=== PATIENT | male | born 1955 | race Caucasian/White ===

== ENCOUNTER 2018-03-13 17:03 | Inpatient (IN) | payer OTHER ==
[2018-03-13] MEDS ORDERED: Fentanyl 100 MCG/2 ML VIAL ONE ×2 (17:46→21:50)
--- NOTE | 2018-03-13 18:41 | CT ---
CT OF THE ABDOMEN AND PELVIS: Date: 03/13/18 PROVIDED CLINICAL HISTORY: Pelvic pain status post injury. FINDINGS: The visualized lung bases are free of significant opacity. The solid abdominal organs are suboptimally evaluated without IV contrast, but demonstrate an unremar kable unenhanced CT appearance. Gallstones are seen. There is no bowel dilatation, intraperitoneal fa t stranding, or free air apparent. There is a both column left acetabular fracture. There is displacement of the anterior column fractur e that extends through the anterior aspect of the acetabulum with significant comminution. There is a pproximately 4.0 mm of intraarticular gap without significant step-off. There is intramuscular hemato ma involving the left obturator internus. There is mild mass effect upon the left aspect of the urina ry bladder. There is mild superior end plate compression deformity of L1. This appears acute. No additional fract ure is evident. Segmentation anomaly involving L4 is noted. Occasional vascular calcification is seen. Density in the distal right inguinal canal may reflect the right testicle. IMPRESSION: 1. Both column left acetabular fracture. Orthopedic consultation is recommended. 2. Mild superior end plate compression deformity of L1. POS: [facility]
[2018-03-13 18:54] LABS: #Eosinphils 0.1 thou/uL (0.0-0.7); #Lymphocytes 0.9 thou/uL (1.20-3.40); #Monocytes 1.1 thou/uL (0.11-0.59); #Neutrophils 13.9 thou/uL (1.40-6.50); %Basophils 0.1 % (0.0-1.0); %Eosinophils 0.4 % (0.0-10.0); %Lymphocytes 5.6 % (21.0-51.0); %Monocytes 6.9 % (0.0-10.0); Hemoglobin 14.1 g/dL (14.0-18.0); Mean Corpuscular Hemoglobin 30.6 pg (27.0-31.0); Mean Corpuscular Volume 92.8 fl (80.0-94.0); Mean Platelet Volume 6.6 fL (7.4-10.4); Platelet Count 243 thou/uL (130-400); RBC Distribution Width 12.4 % (11.5-14.5); White Blood Cell (WBC) Count 15.9 thou/uL (4.8-10.8)
[2018-03-13 19:16] LABS: ALT (SGPT) 25 U/L (8-55); AST (SGOT) 35 U/L (5-34); Albumin 4.1 g/dL (3.4-4.8); Alkaline Phosphatase 42 U/L (40-150); Anion Gap 12 mmol/L (10-20); BUN (Urea Nitrogen) 20 mg/dL (8.4-25.7); Bilirubin, Total 0.6 mg/dL (0.2-1.2); Calc. Creatinine Clearance 0 mL/min (70-130); Calcium 8.5 mg/dL (7.8-10.44); Carbon Dioxide 22 mmol/L (23-31); Chloride 109 mmol/L (98-107); Estimated GFR-MDRD 33; Globulin 2.8 g/dL (2.4-3.5); Glucose 133 mg/dL (80-115); Potassium 4.5 mmol/L (3.5-5.1); Protein, Total 6.9 g/dL (5.8-8.1); Sodium 138 mmol/L (136-145)
[2018-03-13] MEDS ORDERED: Ondansetron HCl/PF 4 MG/2 ML Vial IVP PRN (23:30)
[2018-03-13] MEDS ORDERED: Ondansetron ODT 4 MG TAB PO PRN (23:30)
[2018-03-13] MEDS ORDERED: hydrALAZINE 20 MG/ML VIAL SLOW IVP PRN (23:30)
[2018-03-13] MEDS ORDERED: Cyclobenzaprine 10 MG TAB PO PRN (23:30)
[2018-03-13] MEDS ORDERED: Dextrose 5% in Water 1,000 ML IV PRN (23:30)
[2018-03-13] MEDS ORDERED: Dextrose 50% Abboject 50 ML SYRINGE SLOW IVP PRN (23:30)
[2018-03-13] MEDS ORDERED: Morphine 4 MG/ML VIAL SLOW IVP PRN (23:30)
[2018-03-13] MEDS ORDERED: Famotidine 20 MG TAB PO SCH (23:45)
[2018-03-13] MEDS: Acetaminophen 1,000 MG in Premix Bag 1 BAG IVPB SCH (23:57)
[2018-03-13] MEDS: Ketorolac Tromethamine 30 MG/ML VIAL IVP SCH (23:58)
[2018-03-13] MEDS: Sodium Chloride 0.9% 1,000 ML IV SCH (23:58)
[2018-03-14] MEDS: Morphine 4 MG/ML VIAL SLOW IVP PRN
[2018-03-14 00:47] VITALS: BMI 28.8
[2018-03-14 03:59] LABS: #Basophils 0.1 thou/uL (0.0-0.2); #Monocytes 1.3 thou/uL (0.11-0.59); #Neutrophils 9.6 thou/uL (1.40-6.50); %Basophils 0.6 % (0.0-1.0); %Eosinophils 0.2 % (0.0-10.0); %Lymphocytes 15.4 % (21.0-51.0); %Monocytes 9.8 % (0.0-10.0); %Neutrophils 74.1 % (42.0-75.0); Hemoglobin 12.2 g/dL (14.0-18.0); Mean Corpuscular HGB CONC 33.7 g/dL (32.0-36.0); Mean Corpuscular Hemoglobin 31.4 pg (27.0-31.0); Mean Corpuscular Volume 93.1 fl (80.0-94.0); Platelet Count 217 thou/uL (130-400); RBC Distribution Width 12.5 % (11.5-14.5)
[2018-03-14 04:16] LABS: Anion Gap 9 mmol/L (10-20); BUN (Urea Nitrogen) 21 mg/dL (8.4-25.7); Calc. Creatinine Clearance 53 mL/min (70-130); Calcium 7.9 mg/dL (7.8-10.44); Carbon Dioxide 23 mmol/L (23-31); Chloride 111 mmol/L (98-107); Estimated GFR-MDRD 45; Glucose 117 mg/dL (80-115); Potassium 4.5 mmol/L (3.5-5.1); Sodium 138 mmol/L (136-145)
--- NOTE | 2018-03-14 04:48 | HP ---
HISTORY OF PRESENT ILLNESS: Benedict Abdullahi is a 62-year-old male patient involved in an accident rid ing a horse in [place], [place]. He lives in [place]. Accident occurred at 10:30 this morning. He denie s loss of consciousness. He was transported by a vehicle and got to [place] where he realized h e is having too much discomfort and he is stopped in the emergency room. CAT scan obtained revealed left pelvic fracture and he was transferred to [facility] Room, evaluated by Dr. Kierra coleman. The patient has been hemodynamically stable and this case has been discussed with Dr. Ashford son, reviewed his CAT scan and is planning ORIF of his pelvis on Tuesday. ALLERGIES: None. TOBACCO: None. ALCOHOL: None. MEDICATIONS: None. PAST SURGICAL HISTORY: Vasectomy. He had a colonoscopy 10 years ago, was followed Dr. Todd Colón . PAST MEDICAL HISTORY: Noncontributory. HOME MEDICATIONS: None. PHYSICAL EXAMINATION: VITAL SIGNS: Blood pressure 130/75, heart rate 79, respiratory rate 18. GENERAL: The patient is a retired highway maintainer and currently teaches at [employer] and plan on occas ion was mostly retired. HEAD, EYES, EARS, NOSE AND THROAT: Unremarkable. LUNGS: Clear to auscultation. CARDIAC: Regular rate and rhythm without murmur, rub, or gallop. ABDOMEN: Soft, nontender, no masses. EXTREMITIES: Unremarkable. Good pulses. PELVIS: Tender left pelvis. CAT scan of abdomen and pelvis reveals left acetabular fracture, mild superior endplate compression f racture, deformity of L1. LABORATORY DATA: White count 15, hemoglobin 14. Basic metabolic profile normal. ASSESSMENT AND PLAN: Left acetabular fracture. Dr. Rodríguez has planned open reduction and interna l fixation in [address] Fernandez catheter. Activity per Dr. Rodríguez. SCDs. Check CBC in the morning. Analgesics.
[2018-03-14] MEDS: Acetaminophen 1,000 MG in Premix Bag 1 BAG IVPB SCH ×3 (06:12→17:40)
[2018-03-14] MEDS: Ketorolac Tromethamine 30 MG/ML VIAL IVP SCH ×4 (06:13→23:28)
[2018-03-14] MEDS: Sodium Chloride 0.9% 1,000 ML IV SCH ×2 (08:23→17:40)
[2018-03-14] MEDS: Losartan 25 MG TAB PO SCH (08:24)
--- NOTE | 2018-03-14 10:12 | CON ---
DATE OF CONSULTATION: 03/14/2018 CHIEF COMPLAINT: Left hip pain. HISTORY OF PRESENT ILLNESS: Mr. Abdullahi is a 62-year-old male who was bucked from a horse. He landed hard on his left hip and side. He was in the [place] area. He drove home with his to [facility] and then stopped at the hospital because his pain was significantly worsening. He had difficulty bearing weight after his fall. He was transferred to [facility] in [place] for definitive zaira atment after a pelvic and acetabular fracture was identified. He is resting comfortably. He has bee n admitted to the hospital by the General Surgery Trauma Service. No other injuries have been identi fied. PAST MEDICAL HISTORY: Includes possible thyroid disorder. He is undergoing current workup for this. PAST SURGICAL HISTORY: No recent surgeries. ALLERGIES: None. SOCIAL HISTORY: The patient denies tobacco, alcohol, or drug use. FAMILY MEDICAL HISTORY: Noncontributory. PHYSICAL EXAMINATION: VITAL SIGNS: Temperature is 98.3, pulse is 89, respiratory 16, oxygen saturation 97%, blood pressure 143/77. GENERAL: He is alert, sitting with head of bed elevated, in no apparent distress. HEENT: Normocephalic, atraumatic. RESPIRATORY: Breathing comfortably. ABDOMEN: Soft, nontender, nondistended. CARDIOVASCULAR: Pulse is palpable and regular peripherally. MUSCULOSKELETAL: The patient's left lower extremity has pain with any motion in the hip. He is neur ovascularly intact distally with palpable dorsalis pedis pulse. He is able to flex and extend the fo ot and ankle. Normal sensation. IMAGES: X-rays and CT scan of the pelvis demonstrate a both column acetabulum fracture. The posteri or column component is minimally displaced. He has approximately 1 cm of diastasis at the anterior c olumn through the articular surface. IMPRESSION: Left both column acetabulum fracture. PLAN: At this point, the patient will need operative intervention. Our goal will be to restore aly omic alignment of the articular surface of the joint. I am hopeful we can do this through percutaneo us screw fixation. If not, we will need to do an anterior ilioinguinal type approach to reduce the f racture. The patient is aware of this and wants to proceed. Goal of surgery is to preserve the hip joint. Risks do include post-traumatic arthritis, nonunion, malunion, nerve or vascular injury, DVT, PE, and others. He should be n.p.o. at midnight. He will have appropriate antibiotic and DVT proph ylaxis.
--- NOTE | 2018-03-14 19:53 | PRG ---
DATE OF SERVICE: 03/14/2018 SUBJECTIVE: The patient is hospital day 2 status post being thrown from a horse and sustaining a lef t-sided pelvis fracture. The patient currently is on the surgical floor and he is awaiting orthopedi c intervention, which is scheduled for tomorrow. The patient overnight has had no issues. He states his pain is controlled. He is tolerating a diet this morning. OBJECTIVE: VITAL SIGNS: Temperature is 98.1, heart rate 84, blood pressure 134/73, respirations 12, oxygen satu ration is 96% on room air. GENERAL: The patient is awake, alert, oriented, resting comfortably in bed. His [place] coma scale is 15. HEENT: Unremarkable. LUNGS: Clear to auscultation with good inspiratory and expiratory effort. HEART: Regular rate and rhythm. ABDOMEN: Soft, flat, nontender with active bowel sounds. EXTREMITIES: Neurovascularly intact x4. LABORATORY DATA: White blood cell count 13, hemoglobin 12.2, hematocrit 36.3, platelets 217. Sodium 138, potassium 4.5, chloride 111, CO2 of 23, BUN 21, creatinine 1.57, glucose 117. There are no rad iographs to review this morning. ASSESSMENT: 1. Status post ground-level fall. 2. Left-sided pelvis fracture. 3. Acute on chronic kidney injury. PLAN: Plan will be to continue IV hydration, pain control, supportive care, and make the patient n.p .o. after midnight tonight.
[2018-03-14] MEDS: Famotidine 20 MG TAB PO SCH (21:25)
[2018-03-14] MEDS: Atorvastatin Calcium 10 MG TAB PO SCH (21:25)
[2018-03-14] MEDS: Acetaminophen 500 MG TAB PO SCH (23:28)
[2018-03-15] MEDS: Sodium Chloride 0.9% 1,000 ML IV SCH ×3 (04:16→19:44)
[2018-03-15] MEDS: Acetaminophen 500 MG TAB PO SCH ×4 (05:12→23:26)
[2018-03-15] MEDS: Ketorolac Tromethamine 30 MG/ML VIAL IVP SCH ×4 (05:12→23:27)
[2018-03-15 06:01] LABS: #Eosinphils 0.3 thou/uL (0.0-0.7); #Lymphocytes 2.5 thou/uL (1.20-3.40); #Monocytes 0.9 thou/uL (0.11-0.59); #Neutrophils 6.3 thou/uL (1.40-6.50); %Basophils 0.3 % (0.0-1.0); %Eosinophils 2.8 % (0.0-10.0); %Lymphocytes 25.2 % (21.0-51.0); %Monocytes 9.3 % (0.0-10.0); %Neutrophils 62.5 % (42.0-75.0); Hemoglobin 12.6 g/dL (14.0-18.0); Mean Corpuscular HGB CONC 34.6 g/dL (32.0-36.0); Mean Corpuscular Hemoglobin 32.7 pg (27.0-31.0); Mean Corpuscular Volume 94.5 fl (80.0-94.0); Mean Platelet Volume 6.9 fL (7.4-10.4); Platelet Count 185 thou/uL (130-400); RBC Distribution Width 12.8 % (11.5-14.5); Red Blood Cell (RBC) Count 3.86 mill/uL (4.70-6.10)
[2018-03-15 06:15] LABS: Anion Gap 10 mmol/L (10-20); BUN (Urea Nitrogen) 17 mg/dL (8.4-25.7); Calc. Creatinine Clearance 69 mL/min (70-130); Calcium 7.9 mg/dL (7.8-10.44); Carbon Dioxide 20 mmol/L (23-31); Chloride 112 mmol/L (98-107); Estimated GFR-MDRD 60; Glucose 86 mg/dL (80-115); Magnesium 1.8 mg/dL (1.6-2.6); Phosphorus 2.2 mg/dL (2.3-4.7); Potassium 4.2 mmol/L (3.5-5.1); Sodium 138 mmol/L (136-145)
[2018-03-15] MEDS: Losartan 25 MG TAB PO SCH (10:18)
[2018-03-15] MEDS: Magnesium Oxide 400 MG TAB PO SCH ×2 (11:24→23:26)
[2018-03-15] MEDS ORDERED: CEFAZOLIN/Water 2 GM/20 ML SYRINGE SLOW IVP SCH ×2 (12:00→22:00)
[2018-03-15] MEDS ORDERED: Glycopyrrolate 0.2 MG/ML 5 ML SYRINGE ONE (12:11)
[2018-03-15] MEDS ORDERED: PHENYLEPHRINE-NS 100 MCG/ML 10 ML SYRINGE ONE (12:11)
[2018-03-15] MEDS ORDERED: PROPOFOL 200 MG/20 ML VIAL ONE (12:11)
[2018-03-15] MEDS ORDERED: Dexamethasone 20 MG/5 ML VIAL ONE (12:11)
[2018-03-15] MEDS ORDERED: Ketorolac Tromethamine 30 MG/ML VIAL ONE (12:11)
[2018-03-15] MEDS ORDERED: CEFAZOLIN/Water 2 GM/20 ML SYRINGE ONE (13:34)
[2018-03-15] MEDS ORDERED: Midazolam HCl 2 mg/2 ml Vial ONE (13:50)
[2018-03-15] MEDS ORDERED: Fentanyl 100 MCG/2 ML VIAL ONE ×3 (15:15→16:35)
[2018-03-15] MEDS ORDERED: HYDROmorphone 0.5 MG/0.5 ML SYRINGE ONE (15:56)
[2018-03-15] MEDS ORDERED: Ondansetron HCl/PF 4 MG/2 ML Vial IVP PRN (17:01)
[2018-03-15] MEDS ORDERED: HYDROmorphone 2 MG/ML VIAL SLOW IVP PRN (17:01)
[2018-03-15] MEDS ORDERED: Meperidine HCl/PF 25 MG/ML VIAL SLOW IVP PRN (17:01)
[2018-03-15] MEDS ORDERED: Promethazine HCl 25 MG/ML VIAL SLOW IVP PRN (17:01)
[2018-03-15] MEDS ORDERED: Morphine Sulfate 2 MG/ML SYRINGE SLOW IVP PRN (17:01)
--- NOTE | 2018-03-15 17:49 | PRG ---
DATE OF SERVICE: 03/15/2018 SUBJECTIVE: The patient is hospital day 3 status post being ejected from a horse and sustaining a le ft-sided hip fracture. The patient has been n.p.o. since midnight. His pain was controlled. He is awaiting surgical intervention by the Orthopedic team today. He states that he has had no issues ove rnight. PHYSICAL EXAMINATION: VITAL SIGNS: Temperature is 98.1, heart rate 78, respirations 16, oxygen saturation 98% on room air, blood pressure 125/75. GENERAL: The patient is resting comfortably in bed. He is awake, alert, oriented x3. [place] coma scale is 15. HEENT: Unremarkable. LUNGS: Clear to auscultation with good inspiratory and expiratory effort. HEART: Regular rate and rhythm. ABDOMEN: Soft, flat, nontender. EXTREMITIES: Neurovascularly intact x4. LABORATORY DATA: White blood cell count 10, hemoglobin 12.6, hematocrit 36.5, platelets 185. Sodium 138, potassium 4.2, chloride 112, CO2 of 20, BUN 17, creatinine 1.22, glucose 86, magnesium 1.8, luis miguel sphorus 2.2. There are no radiographs to review this morning. ASSESSMENT: 1. Status post ejection from a horse. 2. Left-sided pelvis fractures. PLAN: Plan will be to continue supportive care, pain control, and await his surgical procedure after wards, physical and occupational therapy, and placement.
[2018-03-15 18:31] LABS: Hemoglobin 11.2 g/dL (14.0-18.0)
[2018-03-15] MEDS: Famotidine 20 MG TAB PO SCH (20:54)
[2018-03-15] MEDS: Atorvastatin Calcium 10 MG TAB PO SCH (20:54)
[2018-03-15] MEDS: Morphine 4 MG/ML VIAL SLOW IVP PRN (20:54)
[2018-03-15] MEDS: HYDROcodone/Acetaminophen 10/325 mg Tablet PO PRN (21:57)
--- NOTE | 2018-03-15 22:10 | CT ---
CT PELVIS WITHOUT CONTRAST: 03/15/2018 PROVIDED CLINICAL HISTORY: Postop acetabular fracture, ORIF. COMPARISON: 03/13/2018 FINDINGS: Interval anterior plate and screw fixation of the left anterior column. The medial-most screw associa makenna with the pubic body approximates the urethra at its distal aspect. The lateral most screw associ ated with the left superior pubic ramus is proud from the posterior-superior pubic ramus cortex, and its relationship to the obturator neurovascular bundle is not well evaluated on the basis of beam silke dening artifact. Interval placement of a cannulated, partially threaded screw from the superior aspect of the acetabul um, terminating in the region of the left ischium. The mid portion of this screw protrudes within th e left hip joint and approximates the superomedial articular cortex of the left femoral head. Commin uted intraarticular acetabular roof fracture, parasagittally oriented, demonstrates no significant in traarticular gap or intraarticular step-off. Postoperative soft tissue gas is demonstrated. Gas density is seen within the bladder from an indwel ling Fernandez catheter. Nonspecific presacral fluid density. IMPRESSION: Interval postoperative changes, as described above. POS: [facility]
--- NOTE | 2018-03-15 22:35 | OP ---
DATE OF OPERATION: 03/15/2018 PROCEDURE PERFORMED: Open reduction internal fixation of left both column acetabulum fracture. PREOPERATIVE DIAGNOSIS: Left displaced both column acetabulum fracture. POSTOPERATIVE DIAGNOSIS: Left displaced both column acetabulum fracture. COMPLICATIONS: None. ESTIMATED BLOOD LOSS: 1300 mL CO-SURGEONS: Masood Rodríguez M.D. and Lincoln Coyle M.D. IMPLANTS: Synthes pelvic reconstruction plate with multiple nonlocking screws, 3.5 and a single 6.5 mm screw. INDICATIONS: Mr. Abdullahi is a 62-year-old male who was bucked from a horse. He fell hard on his left side. He fractured his acetabulum. He was indicated for open reduction internal fixation of the pel vis and acetabulum to restore anatomic alignment and promote healing. Risks were reviewed in detail. He elected to proceed with the operation. Risks are extensive and do include bleeding, nerve or va scular injury, post-traumatic arthritis, hardware failure, nonunion, malunion and others. DESCRIPTION OF PROCEDURE: Mr. Abdullahi was identified in the preoperative holding area. His correct ex tremity was marked. He was carried to the operating room. He was positioned supine. General anesth esia was induced. The left lower extremity and anterior pelvis was prepped and draped in a sterile f ashion. He was placed in traction on the left leg. At this point, we proceeded with ilioinguinal approach to the acetabulum. We dissected down through the subcutaneous tissues to the fascia level. We then reflected the fascia off of the iliac crest. We dissected down over the anterior brim of the iliac crest and elevated the iliacus muscle from the internal iliac crest. We then exposed the pelvic brim. We stopped some nutrient vessel bleeding wit h a small area of bone wax. Once the lateral window was created, we moved medially. We then develop ed the plane of fascia overlying the abdominal musculature. We identified the external inguinal ring . We placed a Jaime drain around the spermatic cord. We then opened the aponeurosis of the inguin al ligament. We incised the floor of the inguinal canal. This allowed direct access to the pelvis. We took care to protect the neurovascular structures as well as the psoas muscle and femoral nerve. We identified the iliopectineal fascia and this was isolated. We then split the fascia down to the bony level. At this point, we worked deep to the psoas muscle, as well as the iliac vessels and conn ected our windows. This allowed good exposure of the fracture in the middle window, which was commin uted and displaced. We thoroughly irrigated this. We then pulled traction on the limb and this allo wed us to reduce the fracture back into an anatomic position. We were able to reduce the posterior c olumn fracture as well as the anterior column fracture with reduction clamps and bone pushers. We he ld these with our bone clamps. Next, we slid a 12-hole plate from medial to lateral along the pelvic brim. We fixed this medially with 2 screws. We then fixed this to the superior pubic ramus through the middle window. Next, we moved to the lateral window and placed multiple screws laterally at the pelvic brim. Again, we checked our reduction which was appropriate. We placed our remaining screws . Finally, at this point, we used intraoperative x-ray to carefully place a posterior column screw. We placed a guidewire for a 6.5 cannulated screw. This was checked on obturator and iliac oblique x -rays. We placed this in the center position of the ischium. We then overdrilled the guidewire and placed a 105 mm 6.5 screw. This helped to reduce her posterior column further. At this point, after thorough irrigation, we took final x-ray images. We then closed with a #1 Vicry l suture for our fascial layers followed by 0 Vicryl suture, 2-0 Vicryl suture and hao for the sk in. A sterile dressing was applied. The patient was taken to the recovery room at this point in goo d condition.
[2018-03-15] MEDS: CEFAZOLIN/Water 2 GM/20 ML SYRINGE SLOW IVP SCH (23:27)
[2018-03-16] MEDS: Sodium Chloride 0.9% 1,000 ML IV SCH (02:37)
[2018-03-16] MEDS: HYDROcodone/Acetaminophen 10/325 mg Tablet PO PRN ×2 (02:42→09:34)
[2018-03-16 05:43] LABS: #Lymphocytes 0.9 thou/uL (1.20-3.40); #Monocytes 1.4 thou/uL (0.11-0.59); #Neutrophils 13.8 thou/uL (1.40-6.50); %Eosinophils 0.1 % (0.0-10.0); %Lymphocytes 5.6 % (21.0-51.0); %Monocytes 8.5 % (0.0-10.0); %Neutrophils 85.8 % (42.0-75.0); Hemoglobin 10.1 g/dL (14.0-18.0); Mean Corpuscular HGB CONC 34.3 g/dL (32.0-36.0); Mean Corpuscular Hemoglobin 31.6 pg (27.0-31.0); Mean Corpuscular Volume 92.4 fl (80.0-94.0); Mean Platelet Volume 7.1 fL (7.4-10.4); Platelet Count 182 thou/uL (130-400); RBC Distribution Width 13.2 % (11.5-14.5); White Blood Cell (WBC) Count 16.1 thou/uL (4.8-10.8)
[2018-03-16 06:21] LABS: Anion Gap 11 mmol/L (10-20); BUN (Urea Nitrogen) 17 mg/dL (8.4-25.7); Calc. Creatinine Clearance 71 mL/min (70-130); Calcium 7.5 mg/dL (7.8-10.44); Carbon Dioxide 21 mmol/L (23-31); Chloride 109 mmol/L (98-107); Estimated GFR-MDRD 63; Glucose 119 mg/dL (80-115); Magnesium 1.5 mg/dL (1.6-2.6); Phosphorus 3.5 mg/dL (2.3-4.7); Potassium 4.8 mmol/L (3.5-5.1); Sodium 136 mmol/L (136-145)
[2018-03-16] MEDS: CEFAZOLIN/Water 2 GM/20 ML SYRINGE SLOW IVP SCH ×3 (06:33→21:57)
--- NOTE | 2018-03-16 08:13 | RAD ---
INTRAOPERATIVE IMAGING OF THE PELVIS: Date: 03/15/18 HISTORY: Open reduction and internal fixation of left acetabulum and pelvis. FINDINGS: Five intraoperative images are provided. Images demonstrate postoperative hardware associated with le ft hemipelvis in the region of the acetabulum, superior pubic ramus, and pubis. There is an obliquely oriented fracture of the inferior pubic ramus on the left. IMPRESSION: Open reduction and internal fixation as above. POS: [facility]
[2018-03-16] MEDS ORDERED: traMADol HCl 50 MG TAB PO PRN ×2 (08:51)
[2018-03-16] MEDS ORDERED: Enoxaparin Sodium 40 MG/0.4 ML SYRINGE SC SCH (09:00)
[2018-03-16] MEDS ORDERED: Acetaminophen 500 MG TAB PO SCH (09:00)
[2018-03-16] MEDS: Polyethylene Glycol 3350 17 GM Packet PO SCH (09:34)
[2018-03-16] MEDS: Senokot S 8.6-50 MG TAB PO SCH ×2 (09:34→21:57)
[2018-03-16] MEDS: Losartan 25 MG TAB PO SCH (09:34)
[2018-03-16] MEDS: Ibuprofen 800 MG TAB PO SCH ×2 (10:36→17:14)
[2018-03-16] MEDS ORDERED: CEFAZOLIN/Water 2 GM/20 ML SYRINGE SLOW IVP SCH (15:30)
[2018-03-16] MEDS ORDERED: Sodium Chloride 0.9% 500 ML IV SCH (16:15)
[2018-03-16] MEDS ORDERED: Magnesium Sulfate 4 GM in Sodium Chloride 0.9% 250 ML 250 ML IVPB SCH (16:15)
--- NOTE | 2018-03-16 16:42 | PRG ---
DATE OF SERVICE: 03/16/2018 SUBJECTIVE: The patient is hospital day #4 postop day #1 status post being ejected from a horse and sustained a left-sided pelvis fracture. The patient underwent operative procedure yesterday with the Orthopedic team. He tolerated this procedure well overnight. His pain was controlled. This mornin g, he is tolerating a diet, has already worked with physical therapy and he has made several steps al ready with his walker. OBJECTIVE: VITAL SIGNS: Temperature is 98.2, heart rate 83, blood pressure 133/77, respirations 12, oxygen satu ration 99% on room air. GENERAL: The patient is sitting in his chair beside his bed. He appears comfortable. He is awake, alert, oriented x3. [place] coma scale is 15. HEENT: Unremarkable. LUNGS: Clear to auscultation bilaterally with good inspiratory and expiratory effort. HEART: Regular rate and rhythm. ABDOMEN: Soft, flat, nontender with active bowel sounds. EXTREMITIES: Neurovascularly intact x4. Postop dressing is clean, dry, and intact. LABORATORY FINDINGS: White blood cell count 16.1, hemoglobin 10.1, hematocrit 29.6, platelets 182. Sodium 136, potassium 4.8, chloride 109, CO2 of 21, BUN 17, creatinine 1.17, glucose 119, magnesium 1 .5, phosphorus 3.5. There are no radiographs to review this morning. ASSESSMENT AND PLAN: 1. Status post ejection from horse. 2. Left-sided pelvis fracture status post open reduction and internal fixation of same. 3. Acute kidney injury, resolved. 4. Hypomagnesemia. PLAN: Will be to continue supportive care. Replace his magnesium. Continue physical and occupation al therapy and await placement decision.
[2018-03-16 16:50] LABS: Hemoglobin 9.7 g/dL (14.0-18.0); Platelet Count 205 thou/uL (130-400)
[2018-03-16] MEDS: Acetaminophen 325 MG TAB PO SCH (17:14)
[2018-03-16] MEDS: Atorvastatin Calcium 10 MG TAB PO SCH (21:57)
[2018-03-16] MEDS: Famotidine 20 MG TAB PO SCH (21:57)
[2018-03-17] MEDS: Acetaminophen 325 MG TAB PO SCH ×4 (00:24→18:03)
[2018-03-17] MEDS: Ibuprofen 800 MG TAB PO SCH ×3 (00:25→18:11)
[2018-03-17] MEDS: Sodium Chloride 0.9% 1,000 ML IV SCH ×3 (00:27→17:58)
[2018-03-17 05:35] LABS: #Eosinphils 0.2 thou/uL (0.0-0.7); #Lymphocytes 1.7 thou/uL (1.20-3.40); #Monocytes 1.3 thou/uL (0.11-0.59); #Neutrophils 10.1 thou/uL (1.40-6.50); %Basophils 0.2 % (0.0-1.0); %Eosinophils 1.8 % (0.0-10.0); %Lymphocytes 12.8 % (21.0-51.0); %Monocytes 9.6 % (0.0-10.0); %Neutrophils 75.6 % (42.0-75.0); Hemoglobin 8.7 g/dL (14.0-18.0); Mean Corpuscular HGB CONC 34.1 g/dL (32.0-36.0); Mean Corpuscular Hemoglobin 31.8 pg (27.0-31.0); Mean Platelet Volume 7.1 fL (7.4-10.4); Platelet Count 192 thou/uL (130-400); RBC Distribution Width 13.6 % (11.5-14.5); Red Blood Cell (RBC) Count 2.73 mill/uL (4.70-6.10); White Blood Cell (WBC) Count 13.3 thou/uL (4.8-10.8)
[2018-03-17 05:56] LABS: Anion Gap 7 mmol/L (10-20); BUN (Urea Nitrogen) 16 mg/dL (8.4-25.7); Calc. Creatinine Clearance 77 mL/min (70-130); Calcium 7.9 mg/dL (7.8-10.44); Carbon Dioxide 23 mmol/L (23-31); Chloride 112 mmol/L (98-107); Estimated GFR-MDRD 69; Glucose 100 mg/dL (80-115); Magnesium 2.3 mg/dL (1.6-2.6); Phosphorus 2.2 mg/dL (2.3-4.7); Potassium 4.1 mmol/L (3.5-5.1); Sodium 138 mmol/L (136-145)
[2018-03-17] MEDS ORDERED: Fentanyl 250 MCG/5 ML VIAL ONE (07:09)
[2018-03-17] MEDS ORDERED: CEFAZOLIN/Water 2 GM/20 ML SYRINGE ONE (07:15)
[2018-03-17] MEDS ORDERED: Promethazine HCl 25 MG/ML VIAL IM PRN (07:56)
[2018-03-17] MEDS ORDERED: Promethazine HCl 25 MG/ML VIAL SLOW IVP PRN (07:56)
[2018-03-17] MEDS ORDERED: Ondansetron HCl/PF 4 MG/2 ML Vial IVP PRN (07:56)
[2018-03-17] MEDS ORDERED: Fentanyl 100 MCG/2 ML VIAL ONE (09:26)
--- NOTE | 2018-03-17 09:35 | RAD ---
LEFT HIP 2 VIEWS: HISTORY: Left acetabular revision ORIF. COMPARISON: Pelvic CT prior day. FINDINGS: Satisfactory appearance of superior pubic ramus late and screw fixation. There is a fracture of the left ileum as well as the transverse oriented fracture of the acetabulum. IMPRESSION: Satisfactory appearance of the left hip surgical hardware. POS: [facility]
[2018-03-17] MEDS: Senokot S 8.6-50 MG TAB PO SCH ×2 (10:52→22:14)
[2018-03-17] MEDS: Losartan 25 MG TAB PO SCH (10:52)
[2018-03-17] MEDS: Polyethylene Glycol 3350 17 GM Packet PO SCH (10:52)
--- NOTE | 2018-03-17 10:57 | OP ---
DATE OF PROCEDURE: 03/17/2018 OPERATION: Left acetabulum hardware removal and screw fixation of acetabulum fracture. PREOPERATIVE DIAGNOSIS: Left both column acetabular fractures with prominent screw. POSTOPERATIVE DIAGNOSIS: Left both column acetabular fractures with prominent screw. COMPLICATIONS: None. ESTIMATED BLOOD LOSS: 300 mL. SURGEON: Masood Rodríguez M.D. ADMINISTRATIVE OFFICE MANAGER: Lincoln Coyle M.D. IMPLANTS: A 6.5 mm cannulated Synthes screw was removed and a 3.5 mm Synthes screw was placed. INDICATIONS: Mr. Abdullahi is a 62-year-old male who has a complex acetabulum fracture. He was treated with open reduction and internal fixation two days ago. We obtained a postoperative CT scan to evalu ate hardware and reduction. We found that a single screw was possibly prominent into the acetabulum and hip joint. We elected to remove the screw to avoid any complications from prominent hardware. T his was explained to the patient in detail and he elected to proceed. Our operative plan is to remov e the prominent screw and replace a safer screw. DESCRIPTION OF PROCEDURE: Mr. Abdullahi was identified in the preoperative holding area. His correct ex tremity was marked. He was carried to the operating room. He was positioned supine. General anesth esia was induced. A multidisciplinary timeout was performed. The left lower extremity was prepped a nd draped in sterile fashion. We began the procedure by opening the patient's lateral aspect of his wound. The lateral window of the ilioinguinal approach was opened. We opened the fascia. We then w ere able to work deeply across the pelvic brim. At this point, the 6.5 cannulated screw was identifi ed. This was backed out appropriately using the screwdriver. This was removed. Next, we evaluated with intraoperative x-ray. We obtained a safe corridor of bone on her iliac oblique view. We then c arefully placed a 3.5 mm screw into the posterior column fixing the ischial fragment. We took x-ray images in all planes. These were safe and appropriate. We thoroughly irrigated with copious lavage. We then reclosed our fascia and subcutaneous tissue as well as skin. The patient was taken to the recovery room at this point in good condition without complication.
[2018-03-17] MEDS: HYDROcodone/Acetaminophen 10/325 mg Tablet PO PRN ×2 (12:44→22:15)
[2018-03-17] MEDS ORDERED: PHENYLEPHRINE-NS 100 MCG/ML 10 ML SYRINGE ONE (13:38)
[2018-03-17] MEDS ORDERED: PROPOFOL 200 MG/20 ML VIAL ONE (13:38)
[2018-03-17] MEDS ORDERED: Glycopyrrolate 0.2 MG/ML 5 ML SYRINGE ONE (13:38)
[2018-03-17] MEDS ORDERED: Dexamethasone 20 MG/5 ML VIAL ONE (13:38)
[2018-03-17] MEDS ORDERED: Lidocaine 1% PF 5 ML VIAL ONE (13:38)
--- NOTE | 2018-03-17 16:50 | PRG ---
DATE OF SERVICE: 03/17/2018 ATTENDING PHYSICIAN: Dr. Villalta. SUBJECTIVE: The patient is hospital day #5, postoperative day #2, status post being ejected from a h orse, sustaining a left-sided pelvis fracture. He underwent operative procedure 2 days ago for fixat ion of his hip fracture. He subsequently returned to the OR this morning for revision of that repair . He is now seen postoperatively on the surgical floor. He is completing a unit of packed red blood cells that was ordered by the Orthopedic Service. He has been up walking with physical and occupati onal therapy and reports that he walked over 50 feet with his walker. OBJECTIVE: VITAL SIGNS: Temperature 98.4, pulse 95, respirations 18, O2 sat 96% room air, blood pressure 139/75 . GENERAL: Well-developed, well-nourished male, lying in bed, in no acute distress. HEENT: Atraumatic, normocephalic. PULMONARY: Bilateral breath sounds clear. No respiratory distress. CARDIOVASCULAR: Regular rate and rhythm. Heart sounds normal. ABDOMEN: Soft, nontender, nondistended. EXTREMITIES: Surgical dressing in place to left hip. Clean, dry, and intact. 2+ pulses in all extr emities. Cap refill brisk in all extremities. NEUROLOGIC: GCS is 15. Awake, alert and oriented x3. ASSESSMENT: 1. Status post ejection from horse. 2. Left-sided pelvis fracture, status post open reduction and internal fixation of fracture. 3. Status post return to OR for revision of repair of pelvic fracture, postoperative day #0. 4. Mobilizing with physical and occupational therapy. PLAN: 1. Recheck H&H in a.m. 2. Replace electrolytes as indicated. 3. The patient has been accepted to rehabilitation. This has been discussed with Dr. Rodríguez, [facility]. If the patient's H&H stable in a.m., he may be discharged per Dr. Rodríguez. 4. Continue antibiotics per Orthopedic Service. 5. Lovenox for DVT prophylaxis. 6. Pepcid for gastritis prophylaxis. 7. Oral analgesia for pain control. The patient was reviewed with Dr. Villalta, who agrees with plan.
[2018-03-17] MEDS: CEFAZOLIN/Water 2 GM/20 ML SYRINGE SLOW IVP SCH (18:01)
--- NOTE | 2018-03-17 22:13 | EKG ---
Test Reason : Blood Pressure : / mmHG Vent. Rate : 102 BPM Atrial Rate : 102 BPM P-R Int : 120 ms QRS Dur : 070 ms QT Int : 320 ms P-R-T Axes : 040 012 017 degrees QTc Int : 417 ms Sinus tachycardia with Premature supraventricular complexes Otherwise normal ECG When compared with ECG of 22-JAN-2009 03:19, Premature supraventricular complexes are now Present Confirmed by LINDSEY BOOTHE, DR. Stroud ([id number]) on 03/17/2018 10:13:30 PM Referred By: MADI Confirmed By:DR. Luanne PORTILLO MD
[2018-03-17] MEDS: Atorvastatin Calcium 10 MG TAB PO SCH (22:14)
[2018-03-17] MEDS: Famotidine 20 MG TAB PO SCH (22:14)
[2018-03-18] MEDS: Sodium Chloride 0.9% 1,000 ML IV SCH (01:29)
[2018-03-18] MEDS: Acetaminophen 325 MG TAB PO SCH ×3 (01:30→10:19)
[2018-03-18] MEDS: CEFAZOLIN/Water 2 GM/20 ML SYRINGE SLOW IVP SCH ×3 (01:31→15:25)
[2018-03-18] MEDS: Ibuprofen 800 MG TAB PO SCH ×3 (02:54→16:37)
[2018-03-18 05:40] LABS: #Eosinphils 0.1 thou/uL (0.0-0.7); #Lymphocytes 1.5 thou/uL (1.20-3.40); #Monocytes 1.1 thou/uL (0.11-0.59); %Basophils 0.2 % (0.0-1.0); %Eosinophils 0.6 % (0.0-10.0); %Monocytes 9.4 % (0.0-10.0); %Neutrophils 76.8 % (42.0-75.0); Hemoglobin 9.5 g/dL (14.0-18.0); Mean Corpuscular Hemoglobin 31.5 pg (27.0-31.0); Mean Corpuscular Volume 92.9 fl (80.0-94.0); Mean Platelet Volume 6.8 fL (7.4-10.4); Platelet Count 162 thou/uL (130-400); RBC Distribution Width 13.2 % (11.5-14.5); White Blood Cell (WBC) Count 11.8 thou/uL (4.8-10.8)
[2018-03-18 06:08] LABS: Anion Gap 6 mmol/L (10-20); BUN (Urea Nitrogen) 17 mg/dL (8.4-25.7); Calc. Creatinine Clearance 75 mL/min (70-130); Calcium 8.2 mg/dL (7.8-10.44); Carbon Dioxide 26 mmol/L (23-31); Chloride 110 mmol/L (98-107); Estimated GFR-MDRD 67; Glucose 101 mg/dL (80-115); Magnesium 1.9 mg/dL (1.6-2.6); Phosphorus 2.8 mg/dL (2.3-4.7); Potassium 4.4 mmol/L (3.5-5.1); Sodium 138 mmol/L (136-145)
[2018-03-18] MEDS ORDERED: Enoxaparin Sodium 40 MG/0.4 ML SYRINGE SC SCH (09:00)
[2018-03-18] MEDS: Polyethylene Glycol 3350 17 GM Packet PO SCH (10:17)
[2018-03-18] MEDS: Senokot S 8.6-50 MG TAB PO SCH (10:17)
[2018-03-18] MEDS: Losartan 25 MG TAB PO SCH (10:18)
[2018-03-18 17:09] VITALS: BP 145/75; TEMP 98
[2018-03-18] MEDS: HYDROcodone/Acetaminophen 10/325 mg Tablet PO PRN (17:12)
== END 2018-03-18 18:10 | DRG 496 ==
LOC: ERS 17:03 → SURG B 23:07
PROVIDERS: ADMIT Specialist; ATTEND Specialist
PROC: 0QS504Z Reposition Left Acetabulum with Internal Fixation Device, Open Approach (ICD-10-PCS; principal; 2018-03-15)
PROC: 0QW Lower Bones, Revision (ICD-10-PCS; 2018-03-17)
DX: S32.432A Displaced fracture of anterior column [iliopubic] of left acetabulum, initial encounter for closed fracture (principal); N17.9 Acute kidney failure, unspecified; S32.442A Displaced fracture of posterior column [ilioischial] of left acetabulum, initial encounter for closed fracture; V80.010A Animal-rider injured by fall from or being thrown from horse in noncollision accident, initial encounter; Y93.52 Activity, horseback riding; Y92.89 Other specified places as the place of occurrence of the external cause; E83.42 Hypomagnesemia
CPT/HCPCS: 36415; 36430; 72170; 72192; 74176; 76001; 76377; 80048; 83735; 84100; 85025; 86850; 86900; 86901; 93005; 93010; 96361; 96374; 96376; C1713; C1769; G0390; G8978-GP-CK; G8979-GP-CI; G8987-GO-CJ; G8988-GO-CI; J0131; J1170; J1650; J1885; J2250; J2270; J3010; J3475; J7050; P9016

== ENCOUNTER 2018-09-11 08:19 | Outpatient (CLI) | payer OTHER ==
--- NOTE | 2018-09-12 10:41 | NM ---
RADIOIODINE THYROID UPTAKE AND SCAN: HISTORY: Abnormal results of thyroid function tests. Normal free T3 and free T4 and low TSH levels on 018. RADIOPHARMACEUTICAL: 258 millicuries of Iodine-123 administered orally. FINDINGS: There is heterogeneous tracer distribution in the thyroid gland with cold nodules in the inferior christina e of the right lobe and the left mid pole. The 24-hour uptake measures 22% (normal 10%-30%). IMPRESSION: 1. Cold nodules in the thyroid gland. Thyroid ultrasound is recommended. 2. Normal 24-hour radioiodine thyroid uptake. POS: [facility]
== END 2018-09-11 08:20 | disposition home or self-care (01) ==
LOC: NM 08:19
PROVIDERS: ATTEND Family Medicine
DX: R94.6 Abnormal results of thyroid function studies (principal)
CPT/HCPCS: 78014; A9516

== ENCOUNTER 2018-10-20 10:41 | Outpatient (CLI) | payer OTHER ==
--- NOTE | 2018-10-20 13:28 | ULT ---
THYROID SONOGRAM: History: Thyroid nodule. Abnormal radionuclide iodine scan. FINDINGS: Right thyroid lobe is 5.6 cm. At the inferior pole, a 3.3 cm predominately solid nodule is present. A complex 1.8 cm nodule also extends inferiorly from the right thyroid lobe. Isthmus is 0.6 cm. Left thyroid lobe is 6.4 cm. At the inferior pole, a complex solid and cystic nodule measures up to 3 .8 x 2.6 cm diameter. A complex 1.9 cm nodule also extends inferiorly from the left thyroid lobe. IMPRESSION: Multinodular goiter. POS: [facility]
== END 2018-10-20 10:42 | disposition home or self-care (01) ==
LOC: BICULT 10:41
PROVIDERS: ATTEND Family Medicine
DX: E04.2 Nontoxic multinodular goiter (principal)
CPT/HCPCS: 76536

== ENCOUNTER 2018-11-21 12:23 | Day surgery (SDC) | payer OTHER ==
[2018-11-20 14:59] VITALS: BMI 28.8
[2018-11-21] MEDS ORDERED: Sodium Bicarbonate 2.5 MEQ/5 ML VIAL ONE (12:54)
[2018-11-21] MEDS ORDERED: Lidocaine 1% PF 5 ML VIAL ONE (12:54)
[2018-11-21 13:27] VITALS: BP 140/73; TEMP 97.8
--- NOTE | 2018-11-21 15:11 | ULT ---
ULTRASOUND GUIDED THYROID BIOPSY: History: Multinodular glands. FINDINGS: After informed consent was obtained the patient was prepped and draped in the normal sterile fashion. Local anesthesia was obtained with 1% Xylocaine mixed with sodium bicarb. Both the right and left lo bes are diffusely nodular and it is actually difficult to define discrete nodules. The largest nodule was on the left side which measured approximately 2.9 cm in maximum dimension. This was the area cho sen for the FNA. A series of four 25-gauge fine needle aspirations were performed. Pathology indicted adequacy. Patien t tolerated the procedure well with no immediate complications. IMPRESSION: Ultrasound directed biopsy of left lobe thyroid nodule. POS: [facility]
== END 2018-11-21 14:00 | disposition home or self-care (01) ==
LOC: ULT 12:23
PROVIDERS: ATTEND Radiology Diagnostic Radiology
PROC: 0G9G3ZX Drainage of Left Thyroid Gland Lobe, Percutaneous Approach, Diagnostic (ICD-10-PCS; principal; 2018-11-21)
DX: E04.2 Nontoxic multinodular goiter (principal); I10 Essential (primary) hypertension; Z79.899 Other long term (current) drug therapy; Z98.890 Other specified postprocedural states
CPT/HCPCS: 60100; 76942; 88173; 88305; J2001

== ENCOUNTER 2024-05-17 13:13 | Outpatient (CLI) | payer MEDICARE | END 2024-05-17 13:14 | disposition home or self-care (01) | LOC: BICULT 13:13 | PROVIDERS: ATTEND Family Medicine | DX: E04.2 Nontoxic multinodular goiter (principal) | CPT/HCPCS: 76536 ==

== ENCOUNTER 2024-09-18 07:13 | Outpatient (CLI) | payer MEDICARE ==
[2024-09-18] MEDS ORDERED: Barium Sulfate 96% 176 GM BOT (xray ONLY) ONE (07:31)
[2024-09-18] MEDS ORDERED: E-Z-HD 98% W/W 340GM BOT (x-ray ONLY) ONE (07:31)
== END 2024-09-18 07:14 | disposition home or self-care (01) ==
LOC: RAD 07:13
PROVIDERS: ATTEND Family Medicine
DX: R13.19 Other dysphagia (principal)
CPT/HCPCS: 74220